=== PATIENT | female | born 1975 | race Two or more races ===

== ENCOUNTER 2024-04-04 07:18 | Day surgery (SDC) | payer OTHER ==
[2024-04-04] MEDS ORDERED: fentaNYL CITRATE 50 MCG/ML AMPUL IV PUSH ONE (11:30)
[2024-04-04] MEDS ORDERED: DIPHENHYDRAMINE HCL 50 MG/ML VIAL 1ML IV ONE (11:30)
[2024-04-04] MEDS ORDERED: MIDAZOLAM HCL 2 MG/2 ML VIAL IV ONE (11:30)
[2024-04-04] MEDS ORDERED: ONDANSETRON HCL 2 MG/ML VIAL IV ONE (11:30)
[2024-04-05] MEDS ORDERED: ZYRTEC10 MG PO (11:19)
[2024-04-05] MEDS ORDERED: DICLOFENAC POTA50 MG PO (11:19)
[2024-04-05] MEDS ORDERED: OMEPRAZOLE MAGN20 MG PO (11:20)
[2024-04-05] MEDS ORDERED: PROAIR RESPICL90 MCG (11:20)
[2024-04-05] MEDS ORDERED: PRILOSEC10 MG (11:20)
[2024-04-05] MEDS ORDERED: SYMBICORT 16010.2 GM (11:20)
== END 2024-04-04 13:20 | disposition home or self-care (01) ==
LOC: AMB-ENDOS 07:18
PROVIDERS: ATTEND Colon & Rectal Surgery
DX: D12.2 Benign neoplasm of ascending colon (principal); K63.5 Polyp of colon

== ENCOUNTER 2024-04-05 10:54 | Emergency (ER) | payer OTHER ==
[~2024-04-05] VITALS: Ht 154.9 cm; Wt 75.7 kg
[2024-04-05] MEDS ORDERED: CIPROFLOXACIN IN 5 % DEXTROSE 400 MG/200 ML PIGGYBAG IV ONE (11:15)
[2024-04-05] MEDS ORDERED: METRONIDAZOLE/SODIUM CHLORIDE 500 MG/100 ML PIGGYBACK IV ONE (11:15)
[2024-04-05] MEDS ORDERED: MEPERIDINE HCL/PF 25 MG/ML VIAL IV ONE (11:15)
[2024-04-05] MEDS ORDERED: DICLOFENAC POTA50 MG PO (11:19)
[2024-04-05] MEDS ORDERED: ZYRTEC10 MG PO (11:19)
[2024-04-05] MEDS ORDERED: SYMBICORT 16010.2 GM (11:20)
[2024-04-05] MEDS ORDERED: PROAIR RESPICL90 MCG (11:20)
[2024-04-05] MEDS ORDERED: PRILOSEC10 MG (11:20)
[2024-04-05] MEDS ORDERED: OMEPRAZOLE MAGN20 MG PO (11:20)
[2024-04-05] MEDS ORDERED: 0.9 % SODIUM CHLORIDE 1,000 ML IV SCH (12:00)
[2024-04-05 12:21] LABS: HEMATOCRIT 45.6 % (36.0-45.00); HEMOGLOBIN 15.2 g/dL (12.0-15.00); MEAN CELL VOLUME 84.6 fL (80.00-100.00); MEAN CORPUSCULAR HEMOGLOBIN 28.2 pg (27.00-32.0); MEAN CORPUSCULAR HGB CONC 33.3 g/dl (32.0-36.0); PLATELET COUNT 307 K/uL (150-450); RED CELL DISTRIBUTION WIDTH 14.2 % (11.5-14.5)
[2024-04-05 12:28] LABS: URINE APPEARANCE Clear; URINE BILIRRUBIN Negative (NEGATIVE); URINE BLOOD Small; URINE COLOR Yellow; URINE GLUCOSE Negative (NEGATIVE); URINE KETONE Negative (NEGATIVE); URINE LEUKOCYTE Negative; URINE NITRATE Negative; URINE PROTEIN Negative (NEGATIVE); URINE UROBILINOGEN 0.2 E.U./dl
[2024-04-05 12:31] LABS: CALCIUM 9.5 mg/dL (8.5-10.1); CREATININE SERUM 0.97 mg/dL (0.55-1.02); GFR 60.79; POTASSIUM 4.08 mEq/L (3.5-5.1)
[2024-04-05 12:32] LABS: URINE EPITHELIAL CELLS 6.6 uL (0.0-38.8); URINE WBC 4.1 uL (0.0-23.2)
[2024-04-05] MEDS ORDERED: MORPHINE SULFATE 4 MG/ML VIAL IV STA (17:20)
[2024-04-05] MEDS ORDERED: HYOSCYAMINE SULFATE 0.125 MG TAB.SUBL SL ONE (17:30)
== END 2024-04-05 18:06 | disposition home or self-care (01) ==
LOC: ER 10:56
PROVIDERS: Emergency Medicine
DX: R10.9 Unspecified abdominal pain (principal); J45.909 Unspecified asthma, uncomplicated; K57.30 Diverticulosis of large intestine without perforation or abscess without bleeding

== ENCOUNTER 2024-09-19 09:20 | Day surgery (SDC) | payer OTHER ==
[~2024-09-19 09:20] MED LIST: DICLOFENAC POTA50 MG PO; OMEPRAZOLE MAGN20 MG PO; PRILOSEC10 MG; PROAIR RESPICL90 MCG; SYMBICORT 16010.2 GM; ZYRTEC10 MG PO
[2024-09-19] MEDS ORDERED: DIPHENHYDRAMINE HCL 50 MG/ML VIAL 1ML IV ONE (14:15)
[2024-09-19] MEDS ORDERED: MIDAZOLAM HCL 2 MG/2 ML VIAL IV ONE (14:15)
[2024-09-19] MEDS ORDERED: fentaNYL CITRATE 50 MCG/ML AMPUL IV PUSH ONE (14:15)
[2024-09-19] MEDS ORDERED: ONDANSETRON HCL 2 MG/ML VIAL IV ONE (14:15)
== END 2024-09-19 15:40 | disposition home or self-care (01) ==
LOC: AMB-ENDOS 09:20
PROVIDERS: ATTEND Colon & Rectal Surgery
DX: D12.2 Benign neoplasm of ascending colon (principal); K63.5 Polyp of colon; K62.1 Rectal polyp; K57.30 Diverticulosis of large intestine without perforation or abscess without bleeding